=== PATIENT | male | born 1995 | race Caucasian/White ===

== ENCOUNTER 2016-12-15 19:42 | Emergency (ER) | payer BC ==
[2016-12-15 19:48] VITALS: TEMP 98.4; O2SAT 95
--- NOTE | 2016-12-15 20:22 | EDPHY ---
H & P Stated Complaint: R arm injury - pulled while rock climbing HPI/ROS: Chief complaint: Right elbow injury History of present illness: 21-year-old male presents to the emergency department for evaluation of a right elbow injury. Patient was rock climbing at a rock gym and while pulling on a hold he felt a pull in his elbow. Since then he has had pain. Worse with movement, better with rest. Denies other associated signs or symptoms including no history of direct trauma, no open wounds, no abnormal coolness or paresthesias in the arm. No other complaints. - Personal History Current Tetanus/Diphtheria Vaccine: Unsure - Medical/Surgical History Hx Asthma: Yes Hx Chronic Respiratory Disease: No Hx Diabetes: No Hx Cardiac Disease: No Hx Renal Disease: No Hx Cirrhosis: No Hx Alcoholism: No Hx HIV/AIDS: No Hx Splenectomy or Spleen Trauma: No Other PMH: PSHx: R scaphoid. PMHx: asthma, depression - Social History Smoking Status: Current every day smoker - Physical Exam Exam: General: Alert, nontoxic Skin: No lesions consistent with trauma to the right upper extremity Musculoskeletal: Mild tenderness to palpation over the anterior aspect of the elbow. Discomfort when ranging it most pronounced with flexion and pronation. The rest of the right upper extremity is unremarkable. Vascular: Radial pulses 2+. Neurologic: Sensation intact throughout the right upper extremity. Constitutional: Initial Vital Signs Temperature (C) 36.9 C 12/15/16 19:45 Heart Rate 72 12/15/16 19:45 Respiratory Rate 14 12/15/16 19:45 Blood Pressure 122/78 H 12/15/16 19:45 O2 Sat (%) 95 12/15/16 19:45 O2 Delivery Mode Room Air Allergies/Adverse Reactions: No Known Allergies Allergy (Unverified 12/15/16 19:44) Home Medications: Medication Instructions Recorded Abilify 12/15/16 Melatonin 12/15/16 Medical Decision Making - Diagnostics Imaging Results: Imaging Impressions Elbow X-Ray 12/15/16 20:05 Impression: No evidence of right elbow fracture or dislocation. Imaging: I viewed and interpreted images myself ED Course/Re-evaluation: Patient seen under the supervision of my secondary supervising physician Dr. Raffaele Oquendo. Patient presents to the emergency department for a right elbow injury. The right upper extremity is neurovascularly intact. X-rays negative. Likely sprain/strain. Patient is placed in a sling for comfort. Home care is discussed. Patient is referred to Orthopedics for recheck. Return precautions are given. Patient voiced understanding and agreement with plan. Differential Diagnosis: Included but not limited to contusion, sprain or strain, bony fracture, joint dislocation Departure - Departure Disposition: Home, Routine, Self-Care Clinical Impression: Arm sprain Condition: Good Instructions: Elbow Sprain (ED) Additional Instructions: Follow-up with orthopedics for continued evaluation and care Use ibuprofen 600 mg 3 times a day for the next 2-3 days for symptom control Ice the injury, 20 minutes on, 3 times daily for the next 3 days Wear sling as needed for comfort If symptoms worsen or new symptoms develop return to the emergency room for recheck Referrals: Davide Hughes MD [Medical Doctor] - As per Instructions
[2016-12-15 21:27] VITALS: BP 118/74; PULSE 69; RESP 16
== END 2016-12-15 21:27 | disposition home or self-care (01) ==
DX: S43.401A Unspecified sprain of right shoulder joint, initial encounter (principal); J45.909 Unspecified asthma, uncomplicated; F17.200 Nicotine dependence, unspecified, uncomplicated; X58.XXXA Exposure to other specified factors, initial encounter; Y99.8 Other external cause status; Y93.31 Activity, mountain climbing, rock climbing and wall climbing
CPT/HCPCS: A4565

== ENCOUNTER 2017-01-15 10:13 | Emergency (ER) | payer BC ==
--- NOTE | 2017-01-15 10:47 | EDPHY ---
H & P Stated Complaint: gomez x 3 days nausea - Personal History Current Tetanus/Diphtheria Vaccine: Yes - Medical/Surgical History Hx Asthma: Yes Hx Chronic Respiratory Disease: No Hx Diabetes: No Hx Cardiac Disease: No Hx Renal Disease: No Hx Cirrhosis: No Hx Alcoholism: No Hx HIV/AIDS: No Hx Splenectomy or Spleen Trauma: No Other PMH: PSHx: R scaphoid. PMHx: asthma, depression - Social History Smoking Status: Current every day smoker Time Seen by Provider: 01/15/17 10:32 HPI/ROS: CHIEF COMPLAINT: Sudden onset headache HISTORY OF PRESENT ILLNESS: 21-year-old male otherwise healthy arrives via private vehicle complaining of sudden onset left occipital headache which started 2 days ago suddenly while he was masturbating. The pain resolved spontaneously after approximately 1 hour. Yesterday evening while he was rock climbing performing exertional moved he had same headache described as sudden onset, intense sudden pain. The pain has resolved slightly after oral ibuprofen , currently describes a 3/10 pain however he is concerned. He notes history of recurrent headaches when he was in early teenager however has not had a headache in at least 6 years. He currently has no photophobia, no nausea or vomiting, no nuchal rigidity, no recent illness, no fever or chills, no history of head or neck trauma or manipulation. PRIMARY CARE PROVIDER: No PCP REVIEW OF SYSTEMS: A ten point review of systems was performed and is negative with the exception of the items mentioned in the HPI PAST MEDICAL & SURGICAL HISTORY: No pertinent medical or surgical history SOCIAL HISTORY: smoker PHYSICAL EXAM (Prior to examination, patient consented to physical exam, hands were washed and my usual and customary physical exam procedures followed) 1) GENERAL: Well-developed, well-nourished, alert and oriented. Appears to be in no acute distress. 2) HEAD: Normocephalic, atraumatic, scalp nontender 3) HEENT: Pupils equal, round, reactive to light bilaterally. Sclera anicteric. Nasopharynx, oropharynx, clear, no lesions. Ears bilaterally with normal tympanic membranes. 4) NECK: Full range of motion, no meningeal signs. 5) LUNGS: Clear auscultation bilaterally, no wheezes, no rhonchi, no retractions. 6) HEART: Regular rate and rhythm, no murmur, no heave, no gallop. 7) ABDOMEN: No guarding, no rebound, no focal tenderness, negative McBurney's, negative Jackson's, negative Rovsing's, negative peritoneal sign, 8) MUSCULOSKELETAL: Moving all extremities, no focal areas of tenderness, no obvious trauma. No peripheral edema or discoloration. 9) BACK: No CVA tenderness, no midline vertebral tenderness, no fluctuance, no step-off, no obvious trauma, no visual or palpable abnormality. 10) SKIN: No rash, no petechiae. 11) Psychiatric: Patient is oriented X 3, there is no agitation. 12) NEURO: Awake, alert, and oriented to person, place and time. Answers questions appropriately. There were no obvious focal neurologic abnormalities. No cerebellar dysfunction. Cranial nerves 2 through to 12 intact. Normal steady gait. Upper and lower extremities bilaterally with strength 5 / 5, reflexes 2+. DIFFERENTIAL DIAGNOSIS: In no particular order, including but not limited to subarachnoid hemorrhage, migraine headache, tension headache and infectious causes such as meningitis, pharyngitis and sinusitis. The patient understands that this diagnosis is provisional and can never be 100% accurate. Usual and customary warnings were given concerning the clinical impression and all the patient's questions were answered. The patient was instructed to return to the emergency department should her symptoms worsen or return, or develop any new symptoms, otherwise to followup as directed in discharge instructions. This is a partial list of diagnoses considered. These considerations are based on history, physical exam, past history and reassessment. (Derrick Duncan) Constitutional: Initial Vital Signs Temperature (C) 36.5 C 01/15/17 10:15 Heart Rate 60 01/15/17 10:15 Respiratory Rate 18 01/15/17 10:15 Blood Pressure 131/48 H 01/15/17 10:15 O2 Sat (%) 96 01/15/17 10:15 O2 Delivery Mode Room Air Allergies/Adverse Reactions: No Known Allergies Allergy (Verified 01/15/17 10:15) Home Medications: Medication Instructions Recorded Ibuprofen [Motrin (*)] 600 mg PO Q6 #15 tab 01/15/17 Trileptal 01/15/17 traZODone 01/15/17 Medical Decision Making ED Course/Re-evaluation: 10:46 a.m.: Discussed case w/ Dr Barrios in ER 1:03 p.m.: Patient re-evaluated, remains nonfocal neurologic exam. Discussed the appears also would Dr. Barrios. Doubt subarachnoid hemorrhage. Plan will be discharged with follow-up information usual customary discharge precautions instructions. Patient feels comfortable being discharged. (Derrick Duncan) Other Provider: INDEPENDENT PHYSICIAN DOCUMENTATION I evaluated and participated in the management of the patient. I also evaluated the patient independently. My co-signature indicates that I have reviewed this chart and I agree with the findings and plan of care as documented. My personal H&P findings include: The patient presents to the ED for evaluation of a thunderclap headache that is occurred twice over the past several days with exertion. Patient reports his headache is currently a 3/10. He denies any numbness, weakness or visual changes. The patient denies any complaints of neck pain or cervical manipulation. PHYSICAL EXAM General Appearance: Alert, no distress Eyes: Pupils equal and round no pallor or injection ENT, Mouth: Mucous membranes moist Respiratory: There are no retractions, lungs are clear to auscultation Cardiovascular: Regular rate and rhythm Gastrointestinal: Abdomen is soft and nontender, no masses, bowel sounds normal Neurological: A&O, normal motor function, normal sensory exam, normal cranial nerves Skin: Warm and dry, no rashes Musculoskeletal: Neck is supple nontender Extremities: symmetrical, full range of motion Psychiatric: Patient is oriented X 3, there is no agitation DATABASE: CT SCAN OF THE HEAD WITHOUT CONTRAST: NEGATIVE FOR INTRACRANIAL HEMORRHAGE. IMAGES REVIEWED BY MYSELF. ED COURSE: Patient presents to the ED for evaluation of exertional headache x2. Noncontrast head CT scan is negative. Patient was verbally consented to undergo lumbar puncture. I did discuss the risks and benefits of the procedure as well as the possible complications including nerve damage, post lumbar puncture headache, infection and bleeding. The procedure was performed without complication by myself. Procedure: Lumbar puncture. Indication: headache After verbal informed consent from patient explaining the risks including infection, bleeding, and neurologic damage, a lumbar puncture was performed after the patient was prepped and draped in the usual fashion. The back was anesthetized with 1% lidocaine. Approximately 4 cc of clear fluid was obtained. Opening pressure was not obtained. There were no complications. The procedure was performed by myself. (Castillo Barrios) - Data Points Microbiology Results: MICROBIOLOGY 01/15/17 12:15 Cerebral Spinal Fluid Gram Stain - Final 01/15/17 12:15 Cerebral Spinal Fluid CSF Culture - Preliminary Medications Given: Discontinued Medications Sodium Chloride (Ns) 1,000 mls @ 0 mls/hr IV ONCE ONE PRN Reason: Wide Open Stop: 01/15/17 12:30 Last Admin: 01/15/17 12:30 Dose: 1,000 mls Ketorolac Tromethamine (Toradol) 15 mg IVP EDNOW ONE Stop: 01/15/17 12:20 Last Admin: 01/15/17 12:30 Dose: 15 mg Departure - Departure Disposition: Home, Routine, Self-Care Clinical Impression: Headache Qualifiers: Headache type: other headache syndrome Qualified Code(s): G44.89 - Other headache syndrome Condition: Good Instructions: Acute Headache (ED) Additional Instructions: THANK YOU FOR YOUR VISIT TO OUR EMERGENCY DEPARTMENT (ED). YOU WERE SEEN TODAY BECAUSE OF A HEADACHE. YOU MAY HAVE HAD LAB TESTS, A CT SCAN, MRI OR EVEN A LUMBAR PUNCTURE (COMMONLY REFERRED TO A SPINAL TAP). WE CANNOT ALWAYS FIND THE EXACT CAUSE OF YOUR SYMPTOMS DURING YOUR VISIT TO THE ED. PLEASE FOLLOW UP WITH YOUR DOCTOR WITHIN 24 HOURS TO BE RECHECKED. RETURN TO THE ED IMMEDIATELY IF YOUR HEADACHE WORSENS, IF YOU DEVELOP A FEVER, NECK PAIN OR NECK STIFFNESS, OR IF YOU BECOME CONFUSED OR ABNORMALLY DROWSY. Referrals: [facility],. [Clinic] - 1-2 days without fail Prescriptions: Ibuprofen [Motrin (*)] 600 mg PO Q6 #15 tab
[2017-01-15] MEDS ORDERED: KETOROLAC 30 MG/1 ML SDV IVP ONE (12:19)
[2017-01-15] MEDS ORDERED: NS 1,000 ML IV ONE (12:29)
[2017-01-15 12:50] LABS: CSF APPEARANCE CLEAR (CLEAR); CSF COLOR COLORLESS (COLORLESS); CSF SUPERNATANT COLORLESS (COLORLESS); WBC, CSF 0 /mm3 (0-5)
[2017-01-15 12:55] LABS: CSF APPEARANCE CLEAR (CLEAR); CSF COLOR COLORLESS (COLORLESS); CSF SUPERNATANT COLORLESS (COLORLESS); WBC, CSF 0 /mm3 (0-5)
[2017-01-15 13:03] LABS: PROTEIN, CSF 28 mg/dL (12-60)
[2017-01-15 13:16] VITALS: BP 115/57; PULSE 64; RESP 20; TEMP 98.1; O2SAT 98
== END 2017-01-15 13:16 | disposition home or self-care (01) ==
PROC: 009U3ZX Drainage of Spinal Canal, Percutaneous Approach, Diagnostic (ICD-10-PCS; principal; 2017-01-15)
DX: G44.89 Other headache syndrome (principal); F17.200 Nicotine dependence, unspecified, uncomplicated; J45.909 Unspecified asthma, uncomplicated
CPT/HCPCS: 96374; J1885

== ENCOUNTER 2017-01-17 14:25 | Emergency (ER) | payer BC ==
--- NOTE | 2017-01-17 14:39 | EDPHY ---
H & P Stated Complaint: Here 2 days ago for same c/o(see report);still has h/a unrelieved w/ibuprof Time Seen by Provider: 01/17/17 14:38 HPI/ROS: CHIEF COMPLAINT: Worsening headache, diffuse back pain HISTORY OF PRESENT ILLNESS: The patient presents to the ED with complaints of worsening headache and diffuse back pain. The patient was seen in the ED 2 days ago for evaluation of an exertional headache. At that point time he underwent a CT and lumbar puncture which were normal. The patient reports that he was feeling better after his initial ED visit however several hours after leaving the department he developed a bilateral frontal headache and low back pain. The patient denies any acute numbness or weakness. He has been taking ibuprofen without improvement of his symptoms. The patient denies that his headache is positional in nature. It is currently an 8/10. REVIEW OF SYSTEMS: A comprehensive 10 point review of systems is otherwise negative aside from elements mentioned in the history of present illness. Source: Patient - Personal History Current Tetanus Diphtheria and Acellular Pertussis (TDAP): Yes - Medical/Surgical History Hx Asthma: Yes Hx Chronic Respiratory Disease: No Hx Diabetes: No Hx Cardiac Disease: No Hx Renal Disease: No Hx Cirrhosis: No Hx Alcoholism: No Hx HIV/AIDS: No Hx Splenectomy or Spleen Trauma: No Other PMH: PSHx: R scaphoid. PMHx: asthma, depression - Social History Smoking Status: Current every day smoker - Physical Exam Exam: General Appearance: Alert, no distress Eyes: Pupils equal and round no pallor or injection ENT, Mouth: Mucous membranes moist Respiratory: There are no retractions, lungs are clear to auscultation Cardiovascular: Regular rate and rhythm Gastrointestinal: Abdomen is soft and nontender, no masses, bowel sounds normal Neurological: A&O, normal motor function, normal sensory exam, normal cranial nerves Skin: Warm and dry, no rashes Musculoskeletal: Neck is supple nontender Extremities: symmetrical, full range of motion Constitutional: Initial Vital Signs Temperature (C) 36.9 C 01/17/17 14:33 Heart Rate 66 01/17/17 14:33 Respiratory Rate 16 01/17/17 14:33 Blood Pressure 117/70 01/17/17 14:33 O2 Sat (%) 98 01/17/17 14:33 O2 Delivery Mode Room Air Allergies/Adverse Reactions: No Known Allergies Allergy (Verified 01/17/17 14:33) Home Medications: Medication Instructions Recorded Ibuprofen [Motrin (*)] 600 mg PO Q6 #15 tab 01/15/17 Trileptal 01/15/17 traZODone 01/15/17 Medical Decision Making - Diagnostics Imaging Results: Imaging Impressions Brain MRI 01/17/17 14:57 Impression: Normal MRI of the brain without contrast. Results called and discussed with Dr. Castillo Barrios at 01/17/2017 17:25. Head MRA 01/17/17 14:57 Impression: Negative MRA of the platinum of [place]. Results called and discussed with Dr. Castillo Barrios at 01/17/2017 17:27. Head MRA 01/17/17 15:05 Impression: No definite evidence of superior sagittal sinus thrombosis. Results called and discussed with Dr. Castillo Barrios at 01/17/2017 17:26. ED Course/Re-evaluation: The patient presents to the ED with the development of a constant frontal headache and generalized back pain following a lumbar puncture performed 2 days ago. The patient did have a negative CT scan at that point time. His lumbar puncture was unremarkable. The patient's examination today demonstrates no evidence of fever or meningeal symptoms. The patient does have a headache which is not positional in nature. The patient had an IV established. He received IV Toradol and a lidocaine infusion. Given the nature of the patient's headache which has progressed to a bilateral frontal headache which is not positional, additional imaging studies have been ordered including a brain MRI, MRA/MRV. Fortunately, the results of the patient's brain MRI studies are normal. I re-evaluated the patient at 5:35 p.m.. The patient is sitting upright in bed. He states his headache has entirely resolved. The patient is neurologically intact. I do not feel that further workup is indicated. The patient does not have a typical post lumbar puncture headache and I do not feel the blood patch is indicated. The patient will be discharged home with customary aftercare instructions. The patient is given a referral to our on-call neurologist. Differential Diagnosis: Differential diagnosis considered includes central vein thrombosis, ACADEMIC PHYSICIAN aneurysm , intraparenchymal tumor, meningitis, post lumbar puncture headache - Data Points Medications Given: Discontinued Medications Sodium Chloride (Ns) 1,000 mls @ 0 mls/hr IV ONCE ONE; Wide Open PRN Reason: Protocol Stop: 01/17/17 14:58 Last Admin: 01/17/17 15:50 Dose: 1,000 mls Lidocaine HCl 200 mg/ Sodium (Chloride) 120 mls @ 600 mls/hr IV EDNOW ONE Stop: 01/17/17 15:11 Last Admin: 01/17/17 15:50 Dose: 120 mls Ondansetron HCl (Zofran) 4 mg IVP EDNOW ONE Stop: 01/17/17 14:58 Last Admin: 01/17/17 15:50 Dose: 4 mg Departure - Departure Disposition: Home, Routine, Self-Care Clinical Impression: Headache Condition: Good Instructions: Acute Headache (ED) Additional Instructions: 1. Take Ibuprofen or Motrin 600 mg by mouth three times a day. 2. Tylenol 650 mg every 6 hours as needed for pain. 3. Please return to the ED for severe headache, neurologic symptoms such as numbness or weakness, blurry vision or other concerns. 4. You have been given the number of our on-call neurologist Dr. wise you continue to experience headaches. I do recommend following up with him for further evaluation. Referrals: MD ASHUTOSH [Other] - As per Instructions Julio Zamudio MD [Medical Doctor] - As per Instructions
[2017-01-17 14:46] VITALS: RESP 16
[2017-01-17] MEDS ORDERED: NS 1,000 ML IV ONE (14:57)
[2017-01-17] MEDS ORDERED: ONDANSETRON 4 MG/2 ML VIAL IVP ONE (14:57)
[2017-01-17] MEDS ORDERED: LIDOCAINE 1% 200 MG in NS 100 ML IV ONE (15:00)
[2017-01-17] MEDS ORDERED: GADOBUTROL 10 ML VIAL IVP ONE (15:33)
[2017-01-17 18:06] VITALS: BP 125/68; PULSE 62; TEMP 97.9; O2SAT 97
== END 2017-01-17 18:05 | disposition home or self-care (01) ==
DX: R51 Headache (principal); E86.9 Volume depletion, unspecified; F17.200 Nicotine dependence, unspecified, uncomplicated; J45.909 Unspecified asthma, uncomplicated
CPT/HCPCS: 96374; A9585; J2405

== ENCOUNTER 2018-04-03 17:04 | Emergency (ER) | payer BC ==
--- NOTE | 2018-04-03 17:22 | EDPHY ---
H & P Stated Complaint: ? ANAL ABCESS Time Seen by Provider: 04/03/18 17:22 HPI/ROS: CHIEF COMPLAINT: Cutaneous abscess HISTORY OF PRESENT ILLNESS: The patient presents to the ED with small cutaneous abscess on his left gluteal area. The patient denies prior history of abscess. He denies vomiting, diarrhea, fever or additional acute complaints. He has no prior history of inflammatory bowel disease or surgical history. REVIEW OF SYSTEMS: A comprehensive 10 point review of systems is otherwise negative aside from elements mentioned in the history of present illness. Source: Patient Exam Limitations: No limitations - Personal History Current Tetanus Diphtheria and Acellular Pertussis (TDAP): Unsure - Medical/Surgical History Hx Asthma: No Hx Chronic Respiratory Disease: No Hx Diabetes: No Hx Cardiac Disease: No Hx Renal Disease: No Hx Cirrhosis: No Hx Alcoholism: No Hx HIV/AIDS: No Hx Splenectomy or Spleen Trauma: No Other PMH: PSHx: R scaphoid. PMHx: depression - Social History Smoking Status: Current every day smoker - Physical Exam Exam: General Appearance: Alert, no distress Eyes: Pupils equal and round no pallor or injection ENT, Mouth: Mucous membranes moist Respiratory: There are no retractions, lungs are clear to auscultation Cardiovascular: Regular rate and rhythm Gastrointestinal: Abdomen is soft and nontender, no masses, bowel sounds normal Genitourinary: Small 1 cm subcutaneous abscess noted approximately 4 cm adjacent to the rectum on the right gluteal cheek Neurological: 5/5 strength all 4 extremities Skin: Warm and dry, no rashes Musculoskeletal: Neck is supple nontender Extremities: symmetrical, full range of motion Psychiatric: Patient is oriented X 3, there is no agitation Constitutional: Initial Vital Signs Temperature (C) 37.1 C 04/03/18 17:09 Heart Rate 72 04/03/18 17:09 Respiratory Rate 17 04/03/18 17:09 Blood Pressure 103/56 L 04/03/18 17:09 O2 Sat (%) 96 04/03/18 17:09 O2 Delivery Mode Room Air Allergies/Adverse Reactions: No Known Allergies Allergy (Verified 04/03/18 17:08) Home Medications: Medication Instructions Recorded Sulfamethox/Tmp 800/160 mg 1 tab PO BID #14 tab 04/03/18 [Bactrim DS] Medical Decision Making Procedures: Procedure: Abscess drainage. The patient's abscess was located on the right gluteal cheek. Risks, benefits, alternatives discussed with the patient and consent obtained. The abscess was incised with a #11 blade and purulent drainage was expressed. The wound was irrigated and packed. The patient tolerated the procedure well. The procedure was performed by myself. ED Course/Re-evaluation: The patient has small abscess drained. A small packing was left in place which the patient will remove in 2 days. The patient will be discharged home with a prescription for antibiotics. He is also advised to return to the ED for any increased pain, swelling, fever or other concerns. Departure - Departure Disposition: Home, Routine, Self-Care Clinical Impression: Abscess, gluteal, right Condition: Good Instructions: Abscess (ED), Hydrocodone/Acetaminophen (By mouth), Sulfamethoxazole/Trimethoprim (By mouth) Additional Instructions: 1. You can removed your packing if it does not follow-up before then. 2. Antibiotics as directed for next 7 days. 3. Return to the ED for any increasing pain, redness, swelling or fever as this may be the sign of a reaccumulated abscess. 4. Take Ibuprofen or Motrin 600 mg by mouth three times a day. 5. Evangeline as needed for severe pain Referrals: Richar Gann MD [Medical Doctor] - As per Instructions Prescriptions: Sulfamethox/Tmp 800/160 mg [Bactrim DS] 1 tab PO BID #14 tab
[2018-04-03] MEDS ORDERED: HYDROCOD/APAP 5/325 PREPACK#6 BTL TAKEHOME ONE (17:50)
[2018-04-03] MEDS ORDERED: SULFAMETHOX/TMP 800/160 MG 1 TAB PO ONE (17:50)
[2018-04-03] MEDS ORDERED: SULFAMET/TMP DS PREPACK#2 BTL TAKEHOME ONE (17:50)
[2018-04-03] MEDS ORDERED: HYDROCODONE/APAP 5/325 TAB PO ONE (18:14)
[2018-04-03 18:27] VITALS: BP 119/57
== END 2018-04-03 18:26 | disposition home or self-care (01) ==
PROC: 0J990ZZ Drainage of Buttock Subcutaneous Tissue and Fascia, Open Approach (ICD-10-PCS; principal; 2018-04-03)
DX: L02.31 Cutaneous abscess of buttock (principal)

== ENCOUNTER 2018-09-23 07:57 | Emergency (ER) | payer BC ==
[2018-09-23 08:03] VITALS: BP 140/75
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
--- NOTE | 2018-09-23 09:21 | ASMTCMCOM ---
CM Note CM Note Notes: Follow up appointment scheduled for patient with Dr. Mcnair (orthopedics) at the [facility], tomorrow September 24 at 0915. Contact information and address provided to patient. Date Signed: 09/23/2018 09:20 AM Electronically Signed By:Brianna Zavala RN
== END 2018-09-23 09:05 | disposition home or self-care (01) ==
DX: M25.462 Effusion, left knee (principal)
CPT/HCPCS: L1830